=== PATIENT | male | born 1965 | race Caucasian/White ===

== ENCOUNTER 2025-03-09 17:11 | Emergency (ER) | payer MEDICAID ==
[~2025-03-09] VITALS: Ht 170.2 cm; Wt 65.8 kg
[2025-03-09] MEDS ORDERED: IBUPROFEN 600 MG TABLET ONE (17:39)
[2025-03-09] MEDS: IBUPROFEN 600 MG TABLET PO ONE (17:42)
[2025-03-09] MEDS ORDERED: IBUP-1490 PO (18:21)
[2025-03-09 18:38] VITALS: BP 118/85; TEMP 98.2; O2SAT 100
== END 2025-03-09 18:42 | disposition home or self-care (01) ==
LOC: ER 17:18
DX: M79.672 Pain in left foot (principal); M79.671 Pain in right foot; Z59.00 Homelessness unspecified
CPT/HCPCS: 73610-TC